=== PATIENT | male | born 1960 | race Hispanic/Latino ===

== ENCOUNTER 2021-09-09 17:59 | Emergency (ER) | payer BC ==
[~2021-09-09] VITALS: Ht 177.8 cm; Wt 104.3 kg
[2021-09-09] MEDS ORDERED: SODIUM BICARB 8.4% 50ML SYRINGE IVP ONE (18:00)
[2021-09-09] MEDS ORDERED: EPINEPHRINE 1MG SYG 10ML IVP ONE (18:00)
== END 2021-09-09 21:50 ==
LOC: EDH 17:59
DX: I46.9 Cardiac arrest, cause unspecified (principal)
CPT/HCPCS: 31500; 92950; 99291; A9900; J0171; J3490